=== PATIENT | male | born 1975 | race Caucasian/White ===

== ENCOUNTER 2018-05-18 11:51 | Inpatient (IN) ==
[2018-05-18] MEDS ORDERED: Sodium Chloride 0.9% 1,000 ML PRIMARY IV ONE ×2 (12:05→13:20)
[2018-05-18 12:12] LABS: BASOPHILS # (AUTO) 0.01 10*3/UL; BASOPHILS % (AUTO) 0.1 % (0-1); EOSINOPHILS # (AUTO) 0 10*3/UL; EOSINOPHILS % (AUTO) 0 % (0-8); Hematocrit [HCT] 51.5 % (42.0-52.0); Hemoglobin [HGB] 17.1 g/dL (14.0-18.0); LYMPHOCYTES # (AUTO) 1.53 10*3/uL; MEAN CORPUSCULAR HEMOGLOBIN 30.4 PG (27-31); MEAN CORPUSCULAR HGB CONC 33.2 g/dL (33-37); MEAN CORPUSCULAR VOLUME 91.5 FL (80-90); MEAN PLATELET VOLUME 10.2 FL (7.4-12.2); MONOCYTES # (AUTO) 0.61 10*3/UL (0.3-0.8); MONOCYTES % (AUTO) 6.1 % (5-15); NEUTROPHILS # (AUTO) 7.89 10*3/UL; NEUTROPHILS % (AUTO) 78.4 % (50-80); RED BLOOD COUNT 5.63 10^6/uL (4.70-6.10)
[2018-05-18 12:17] LABS: PLATELET MORPHOLOGY COMMENT NORMAL MORPHOLOGY (NORM); RBC MORPHOLOGY COMMENT NORMAL MORPHOLOGY (NORM); WBC MORPHOLOGY COMMENT NORMAL MORPHOLOGY (NORM)
[2018-05-18 12:29] LABS: BLOOD UREA NITROGEN 14 mg/dL (7-22); BUN/CREATININE RATIO 10.76 (6-20); SERUM ALBUMIN 5.2 g/dL (3.5-4.8)
--- NOTE | 2018-05-18 13:07 | DI ---
CT HEAD SCAN WITHOUT IV CONTRAST, 05/18/2018 12:05 PM : Clinical History: Injury. The patient fell. Headache. Previous Exam: None at this facility. Scans are obtained from the foramen magnum to the vertex without IV contrast. The 4th, 3rd, and lateral ventricles are of normal size, shape, position, and contour for the patient 's age. There are no abnormal areas of increased or decreased density. Specifically, there is no evid ence of an acute intracranial hemorrhagic focus. There are no extracerebral mantles or shift of the m idline structures. Bone window evaluation is normal. The paranasal sinuses are normal. READING: Normal non contrast CT head scan. There is no evidence of an acute intracranial hemorrhagic focus.
[2018-05-18 13:16] LABS: VENOUS PH 7.3 (7.32-7.42)
--- NOTE | 2018-05-18 13:16 | DI ---
CT CERVICAL SPINE WITHOUT CONTRAST, 05/18/2018 12:07 PM : Clinical History: Fall with injury to the head and neck. Previous Exam: None at this facility. Scans are performed from the T2-3 disc space to the base of the skull without contrast. Sagittal and coronal reformatted images are generated. The vertebral bodies are of normal height and size. Severe disc space narrowing is present at C6-7 wi th anterior and posterior bony proliferative change. Mild arthritic changes are present in all of the uncovertebral joints but most pronounced at C6-7. Arthritic changes are present in the zygapophyseal joint between C7 and T1 bilaterally. No fractures are identified. Posterior alignment and lateral ma sses are normal. C1 articulates normally with C2 and the occiput. Prevertebral soft tissue planes are normal. The disc spaces from C2-3 through C5-6 are normal. The lower disc spaces are obscured by artifacts. READIN. There is no acute fracture or dislocation. 2. 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 Arthritic changes are also noted in the zygapophyseal joints between C7 and T1.
--- NOTE | 2018-05-18 13:18 | DI ---
[facility] CHEST X-RAY, 05/18/2018 12:05 PM : Clinical History: Injury. The patient fell. Previous Exam: None at this facility. There is no acute soft tissue or bony abnormality. Heart size is normal. Lungs are clear. Mediastinal structures are normal. There are no pulmonary nodules. Reading: Normal chest x-ray. There is no pneumothorax or evidence of a rib fracture.
--- NOTE | 2018-05-18 13:19 | EKG ---
Measurements Intervals [place] Rate: 82 P: 41 MI: 203 QRS: 36 QRSD: 102 T: 27 QT: 374 QTc: 413 Interpretive Statements SINUS RHYTHM No previous ECG available for comparison Electronically Signed On 05-18-18 16:19:04 MDT by Chava Ludwig [email or web address]
--- NOTE | 2018-05-18 13:26 | PDOC ---
General Adult HPI - General Chief Complaint: General Medical Stated Complaint: LIGHTHEADEDNESS Date Seen by Provider: 05/18/18 Time Seen by Provider: 11:55 Source: POSITIVE: Patient, EMS Exam Limitations: POSITIVE: No limitations Nurse's Notes Reviewed & Considered: Yes EMS Report Reviewed & Considered: Verbal - History of Present Illness Initial Comment: The patient is a 43-year-old male who is brought to the emergency department by ambulance with complaints of lightheadedness. 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 He was taken down and hit the back of his head fairly hard. He did not have any loss of consciousness and was able to continue for several more drills. He subsequently developed lightheadedness and worsening headache. Subsequently EMS was called. He states that he has not felt well in general for the past couple of days. He reports general malaise and nausea without any vomiting. He denies any complaints of chest pain, shortness of breath, fever, cough, abdominal pain, numbness or weakness in his arms or legs. He states that he did injure his neck earlier this week during a takedown drill. He states that the muscles on the sides of his neck were stiff and sore however they feel better now. He is generally healthy and denies taking any medications. When EMS arrived on scene the patient was mildly hypoxic with O2 sats in the upper 80s on room air. His blood pressure was also in the 90s over 60s. An IV was established and normal saline bolus initiated. His blood sugar was checked in route and was 140. An EKG was done in route which shows normal sinus rhythm with no acute ST segment or T-wave changes. Have you received a tetanus shot in the past 10 years?: Yes - Patient Home Medications Home Medications: Home Medications NK 04/17/18 - Patient Allergies Allergies/Adverse Reactions: Allergies 3 Allergy/AdvReac Type Severity Reaction Status Date / Time hay fever Allergy Mild NOT Uncoded 05/18/18 11:50 APPLICABLE Past Medical History - heen HEENT History: Denies History Cardiovascular History: Denies History Respiratory History: Denies History Gastrointestinal History: Denies History Genitourinary History: Denies History Endocrine History: Denies History Musculoskeletal History: Other (please comment) Prosthesis or Implant: No Additional Musculoskeletal History: C4 HERNIATION Neurological History: Denies History Blood Disorders: Denies History Psychiatric History: Denies History History of Sexually Transmitted Diseases: No Male Reproductive History: Denies History Cancer History: Denies History In Past Year Been Physically Harmed or Verbally Threatened: No (PER PATIENT) History of MDRO: No History of Other Communicable Diseases: No Tobacco Use: Never Smoker In the Past 12 Months, Have Used or Abuse Any Substance: None Previous Surgical History: Yes Type / Date of Surgery: ABDOMINAL HERNIA REPAIR, BILATERAL INGUINAL HERNIA REPAIR Anesthesia Reactions: No Malignant Hyperthermia: No Family History of Malignant Hyperthermia: No Significant Family History: No pertinent family hx Past Medical History Reviewed: Reviewed - No Changes ROS - Limitations ROS Limitations: No Limitations Constitution: DENIES: Chills, Fever Cardiovascular: REPORTS: Edema (He states he did have some leg swelling in both of his legs last week). DENIES: Chest Pain, Heart Palpitations Respiratory: REPORTS: Denies Resp Symptoms. DENIES: Cough Non Productive, Cough Productive, Hurts To Breathe, Shortness Of Breath Neurological: REPORTS: Headache, Dizziness. DENIES: Confusion, Numbness, Fainting, Weakness Gastrointestinal: REPORTS: Nausea. DENIES: Abdominal Pain, Vomitting, Diarrhea , Black Stools, Bloody Stools Genitourinary: REPORTS: Denies Symptoms. DENIES: Difficulty Urinating Eyes: REPORTS: Denies Symptoms ENT: REPORTS: Denies Symptoms Skin: DENIES: Rash General Adult Exam - General Appearance General Appearance: POSITIVE: Alert, Cooperative, No Acute Distress - HEENT HEENT: POSITIVE: Head Inspection Nml, Eyes Inspection Nml, Ears Inspection Nml, Nose Inspection Nml, Pharynx Inspect. Nml, PERRL, EOMI, Dry Mucous Membranes - Neck Neck: POSITIVE: Normal Inspection, Other (He does not have any midline C-spine tenderness, denies any muscle tenderness). 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 CT scan of the cervical spine reveal some degenerative changes in the lower cervical spine with no evidence of acute fracture per radiologist. Chest x-ray is normal per radiologist. Lab Results Reviewed by Me: Yes Lab Results:: Laboratory Results 3 05/18/18 05/18/18 05/18/18 11:50 11:50 11:50 WBC 10.06 RBC 5.63 Hgb 17.1 Hct 51.5 MCV 91.5 H MCH 30.4 MCHC 33.2 RDW Std Deviation 43.9 RDW Coeff of Claudia 13.1 Plt Count 380 H MPV 10.2 Immature Gran % (Auto) 0.2 Neut % (Auto) 78.4 Lymph % (Auto) 15.2 Moffat % (Auto) 6.1 Eos % (Auto) 0 Baso % (Auto) 0.1 Immature Gran # (Auto) 0.02 Neut # (Auto) 7.89 Lymph # (Auto) 1.53 Moffat # (Auto) 0.61 Eos # (Auto) 0 Baso # (Auto) 0.01 WBC Morphology Comment Normal morphology Plt Morphology Comment Normal morphology RBC Morph Comment Normal morphology D-Dimer 0.20 VBG pH VBG pCO2 VBG HCO3 VBG Base Excess Sodium 143 Potassium 4.1 Chloride 103 Carbon Dioxide 17 L Anion Gap 23 H BUN 14 Creatinine 1.3 Estimated GFR > 60 BUN/Creatinine Ratio 10.76 Glucose 160 H Calculated Osmolality 299.0 H Lactic Acid Calcium 9.7 Magnesium 2.9 H Total Bilirubin 0.9 AST 38 ALT 56 Alkaline Phosphatase 84 Total Creatine Kinase Troponin I C-Reactive Protein < 0.5 NT-Pro-B Natriuret Pep 31.3 Total Protein 8.1 H Albumin 5.2 H Globulin 2.9 Albumin/Globulin Ratio 1.70 3 05/18/18 05/18/18 05/18/18 11:50 11:50 11:50 WBC RBC Hgb Hct MCV MCH MCHC RDW Std Deviation RDW Coeff of Claudia Plt Count MPV Immature Gran % (Auto) Neut % (Auto) Lymph % (Auto) Moffat % (Auto) Eos % (Auto) Baso % (Auto) Immature Gran # (Auto) Neut # (Auto) Lymph # (Auto) Moffat # (Auto) Eos # (Auto) Baso # (Auto) WBC Morphology Comment Plt Morphology Comment RBC Morph Comment D-Dimer VBG pH VBG pCO2 VBG HCO3 VBG Base Excess Sodium Potassium Chloride Carbon Dioxide Anion Gap BUN Creatinine Estimated GFR BUN/Creatinine Ratio Glucose Calculated Osmolality Lactic Acid 10.6 H Calcium Magnesium Total Bilirubin AST ALT Alkaline Phosphatase Total Creatine Kinase 150 Troponin I < 0.012 C-Reactive Protein NT-Pro-B Natriuret Pep Total Protein Albumin Globulin Albumin/Globulin Ratio 3 05/18/18 12:14 WBC RBC Hgb Hct MCV MCH MCHC RDW Std Deviation RDW Coeff of Claudia Plt Count MPV Immature Gran % (Auto) Neut % (Auto) Lymph % (Auto) Moffat % (Auto) Eos % (Auto) Baso % (Auto) Immature Gran # (Auto) Neut # (Auto) Lymph # (Auto) Moffat # (Auto) Eos # (Auto) Baso # (Auto) WBC Morphology Comment Plt Morphology Comment RBC Morph Comment D-Dimer VBG pH 7.30 L VBG pCO2 34 L VBG HCO3 17 L VBG Base Excess -10 L Sodium Potassium Chloride Carbon Dioxide Anion Gap BUN Creatinine Estimated GFR BUN/Creatinine Ratio Glucose Calculated Osmolality Lactic Acid Calcium Magnesium Total Bilirubin AST ALT Alkaline Phosphatase Total Creatine Kinase Troponin I C-Reactive Protein NT-Pro-B Natriuret Pep Total Protein Albumin Globulin Albumin/Globulin Ratio CBC and BMP: 05/18/18 11:50 05/18/18 11:50 EKG Interpreted/Reviewed By Me:: Yes EKG Interpretation:: POSITIVE: Normal Sinus Rhythm, Normal Rate, Normal QRS, Normal ST/T - Patient's Progress MDM / ED Course: On arrival the patient is awake and alert. His oxygen saturations are in the low 90s on 3 L per nasal cannula. His blood pressure remains 92/66. He did receive a 1 L bolus of normal saline and blood pressures improved into the 100 systolic. Because of the low blood pressure and dizziness/general malaise, blood cultures and lactate were drawn with initial IV start. In addition venous blood gas was done which shows a metabolic acidosis with a pH of 7.30 in a PCO2 of 32. His lactate was elevated at 10.2. Blood sugar is 160. His white count and CRP are normal. EKG done here also shows normal sinus rhythm with no acute ST segment or T-wave changes. Troponin, d-dimer, BNP are all normal. After administration of fluids the patient was feeling better overall. Because of his fall and headache a CT scan of the head was done which was normal. CT scan of the cervical spine reveals degenerative changes with no fracture. Chest x-ray also shows normal heart size and normal lung thompson. The patient does have lactic acidosis which is thought to possibly be related to hypovolemia however the exact etiology remains unclear. Clinically he does not have any evidence of infection and sepsis seems unlikely. I did discuss the patient with Dr. Watts and he has agreed to admit the patient for further treatment and monitoring. These findings and recommendations were discussed with the patient and he is in agreement with this plan. Patient Care Time - Estimated PCT Patient Care Time (In Minutes): 40 Vital Signs - Recent Vital Signs Vital Signs: Vital Signs (Last 8 hours) Temp Pulse Pulse Pulse Pulse Pulse Pulse 05/18/18 14:35 98.5 F 84 05/18/18 12:55 84 80 82 05/18/18 12:07 82 05/18/18 11:49 97.3 F 87 87 Resp BP BP BP BP Pulse Ox 05/18/18 14:35 20 118/61 93 05/18/18 12:55 105/66 110/69 103/72 05/18/18 12:07 05/18/18 11:49 17 92/66 91 - VS Reviewed Vital Signs Reviewed: Yes Discharge Clinical Impression: Metabolic acidosis, Lactic acidosis, Scalp contusion, Hypoxia Discharge Disposition: Admit to Inpatient Condition: Fair Date Decision to Admit to Inpatient: 05/18/18 Time Decision to Admit to Inpatient: 12:45
[2018-05-18] MEDS ORDERED: ACETAMINOPHEN 325 MG TABLET PO PRN (14:59)
[2018-05-18] MEDS ORDERED: LIDOCAINE W/ SODIUM BICARB 0.5 ML SYR SUBD PRN (14:59)
[2018-05-18] MEDS ORDERED: CALCIUM CARBONATE 500 MG (TUMS) CHEWABLE TABLET PO PRN (14:59)
[2018-05-18] MEDS ORDERED: DOCUSATE 100 MG CAPSULE PO PRN (14:59)
[2018-05-18] MEDS ORDERED: ONDANSETRON 4 MG/2 ML VIAL IVP PRN (14:59)
--- NOTE | 2018-05-18 15:12 | PDOC ---
HPI - History of Present Illness Date of Service: 05/18/18 Time of Service: 15:20 Chief Complaint: Lightheadedness History of Present Illness: This is a 43 years old male with no significant past medical history who was brought to the hospital because of lightheadedness. 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 He was taking down and hit the back of his head hard. There was no loss of consciousness. After that he did develop some lightheadedness and some headaches. EMS were called and they brought him here he did report that some upset stomach some nausea but no vomiting no diarrhea. When he came in he was mildly hypoxic with the O2 and the upper 80s on room air. Blood pressure was borderline 90s over 60s. an IV fluid was given. The labs showed increased anion gap metabolic secondary lactic acidosis. His lactic acid was 10. After getting IV fluids he was admitted. Currently he is feeling fine he denying symptoms. There is no muscle pain or aches. He is not taking any medication no supplements. Past Medical History Medical History: No significant past medical history Surgical History: History of A hernia repair Family History: Reviewed an Not Pertinent Past Social History: does not smoke or drink lives in [place]. Tobacco Use: Never Smoker In the Past 12 Months, Have Used or Abuse Any of the Following Substance: None Alcohol Use: Sober Medication / Allergies Home Medications: Home Medications 3 Medication Instructions Recorded Confirmed Type NK 04/17/18 05/18/18 History Allergies/Adverse Reactions: Allergies 3 Allergy/AdvReac Type Severity Reaction Status Date / Time hay fever Allergy Mild NOT Uncoded 05/18/18 11:50 APPLICABLE Review of Systems - Review of Systems All Systems: Reviewed & No Additional Complaints Except as Stated Exam - Vitals Vital Signs: Vital Signs Temperature 98.5 F Temperature Source Temporal Artery Scan Pulse Rate [Pulse Oximeter] 84 Pulse Rate [Telemetry] 87 Pulse Rate [Standing] 82 Pulse Rate [Sitting] 80 Pulse Rate [Lying] 84 Pulse Rate 82 Respiratory Rate 20 Blood Pressure [Standing] 103/72 Blood Pressure [Sitting] 110/69 Blood Pressure [Lying] 105/66 Blood Pressure [Left Arm] 118/61 Pulse Ox 93 Oxygen Flow Rate 3 Oxygen Delivery Method Room Air Height 5 ft 10 in Weight 194 lb - General General Appearance: No Acute Distress, Cooperative - Head Head Exam: Normal Inspection - Eye Eye Exam: POSITIVE: Normal Appearance - ENT ENT Exam: POSITIVE: Normal Exam - Neck Neck Exam: Normal Inspection - Respiratory Respiratory Exam: POSITIVE: Clear to Auscultation - Bilaterally - Cardiovascular Cardiovascular Exam: POSITIVE: RRR - GI/Abdominal GI/Abdominal Exam: POSITIVE: Normal Bowel Sounds, Non Tender, Non Distended, Soft, No Organomegaly - Rectal Rectal Exam: POSITIVE: Deferred - External Exam: POSITIVE: Deferred Exam: POSITIVE: Deferred - Extremities Extremities Exam: POSITIVE: Normal Inspection - Back Back Exam: POSITIVE: Normal Inspection - Neurological Neurological Exam: POSITIVE: Alert, Oriented x 3, CN II-XII Intact, No Facial Droop, Speech Intact / Clear, Moves All Extremities Equally - Psychiatric Psychiatric Exam: POSITIVE: Normal Affect Results - Labs CBC and BMP: 05/18/18 11:50 05/18/18 11:50 - EKG Data -: EKG Interpreted by Me Rate: Normal EKG Shows Normal: Sinus Rhythm - EKG Data When Compared to Previous EKG(s) There Are: Other (Normal EKG) - Imaging Status: Report Reviewed by Me ( CT head Normal non contrast CT head scan. There is no evidence of an acute intracranial hemorrhagic focus. CT neck 1. There is no acute fracture or dislocation. 2. Severe arthritic disc space narrowing is present at C6-7 with arthritis involving the zygapophyseal joints at this level. Arthritic changes are also noted in the zygapophyseal joints between C7 and T1. Normal chest x-ray. There is no pneumothorax or evidence of a rib fracture.) Assessment and Plan - Patient Problems (1) Metabolic acidosis Current Visit: Yes Status: Acute Comment: Increased her gabapentin to acidosis secondary lactic acidosis. I think this is secondary to intense physical exertion. We'll continue with IV fluids and repeat his labs. The culture was taking breath think we'll hold off on giving antibiotics. Code(s): E87.2 - Acidosis
[2018-05-18] MEDS: Lactated Ringers 1,000 ML PRIMARY IV SCH ×2 (16:07→23:56)
[2018-05-19 04:33] LABS: BLOOD UREA NITROGEN 16 mg/dL (7-22)
[2018-05-19 07:24] VITALS: RESP 16
[2018-05-19 07:40] VITALS: BP 118/78; TEMP 97.6; O2SAT 92
--- NOTE | 2018-05-19 09:32 | DCSUMMARY ---
Hospitalization Summary Hospital Course: Final Discharge Diagnosis: Current Visit Problems Problem Status Onset Code Metabolic acidosis Acute E87.2 Lactic acidosis Acute E87.2 Scalp contusion Acute S00.03XA Hypoxia Acute R09.02 Diagnostic Data, Laboratory Data, and Procedures of Signifigance: History and Physical pertinent to Admission: Past Medical History Medical History: No significant past medical history Surgical History: History of A hernia repair Family History: Reviewed an Not Pertinent Past Social History: does not smoke or drink lives in [place]. Tobacco Use: Never Smoker In the Past 12 Months, Have Used or Abuse Any of the Following Substance: None Alcohol Use: Sober CBC and BMP 05/18/18 11:50 05/19/18 04:12 Laboratory Results 05/18/18 05/18/18 05/18/18 Range/Units 11:50 11:50 11:50 WBC 10.06 (4.8-10.8) 10^3/uL RBC 5.63 (4.70-6.10) 10^6/uL Hgb 17.1 (14.0-18.0) g/dL Hct 51.5 (42.0-52.0) % MCV 91.5 H (80-90) FL MCH 30.4 (27-31) PG MCHC 33.2 (33-37) g/dL RDW Std Deviation 43.9 (39-50) fL RDW Coeff of Claudia 13.1 (11.5-14.5) % Plt Count 380 H (140-350) 10*3/uL MPV 10.2 (7.4-12.2) FL Immature Gran % (Auto) 0.2 (0-5) % Neut % (Auto) 78.4 (50-80) % Lymph % (Auto) 15.2 (10-50) % [place] % (Auto) 6.1 (5-15) % Eos % (Auto) 0 (0-8) % Baso % (Auto) 0.1 (0-1) % Immature Gran # (Auto) 0.02 10*3/UL Neut # (Auto) 7.89 10*3/UL Lymph # (Auto) 1.53 10*3/uL [place] # (Auto) 0.61 (0.3-0.8) 10*3/UL Eos # (Auto) 0 10*3/UL Baso # (Auto) 0.01 10*3/UL WBC Morphology Comment Normal morphology (NORM) Plt Morphology Comment Normal morphology (NORM) RBC Morph Comment Normal morphology (NORM) D-Dimer 0.20 (0.00-0.59) mg/L VBG pH (7.32-7.42) VBG pCO2 (45-55) mmHg VBG HCO3 (22-26) mmol/L VBG Base Excess (-2-2) MMOL/L Sodium 143 (135-145) meq/L Potassium 4.1 (3.8-5.2) meq/L Chloride 103 (98-112) meq/L Carbon Dioxide 17 L (23-33) meq/L Anion Gap 23 H (5-20) BUN 14 (7-22) mg/dL Creatinine 1.3 (0.70-1.50) mg/dL Estimated GFR > 60 (>60 ml/min/1.73m(2)) BUN/Creatinine Ratio 10.76 (6-20) Glucose 160 H (78-110) mg/dL Calculated Osmolality 299.0 H (267-292) mOsm/kg Lactic Acid (0.70-2.10) MMOL/L Calcium 9.7 (8.7-10.7) mg/dL Magnesium 2.9 H (1.6-2.4) mg/dL Total Bilirubin 0.9 (0.3-1.2) mg/dL AST 38 (21-57) IU/L ALT 56 (21-72) IU/L Alkaline Phosphatase 84 (38-126) IU/L Total Creatine Kinase (55-170) IU/L Troponin I (< 0.040) ng/mL C-Reactive Protein < 0.5 (0.0-0.9) mg/dL NT-Pro-B Natriuret Pep 31.3 (0-125) PG/ML Total Protein 8.1 H (6.1-8.0) g/dL Albumin 5.2 H (3.5-4.8) g/dL Globulin 2.9 (2.50-4.10) g/dL Albumin/Globulin Ratio 1.70 (1.3-2.0) mg/g 05/18/18 05/18/18 05/18/18 Range/Units 11:50 11:50 11:50 WBC (4.8-10.8) 10^3/uL RBC (4.70-6.10) 10^6/uL Hgb (14.0-18.0) g/dL Hct (42.0-52.0) % MCV (80-90) FL MCH (27-31) PG MCHC (33-37) g/dL RDW Std Deviation (39-50) fL RDW Coeff of Claudia (11.5-14.5) % Plt Count (140-350) 10*3/uL MPV (7.4-12.2) FL Immature Gran % (Auto) (0-5) % Neut % (Auto) (50-80) % Lymph % (Auto) (10-50) % [place] % (Auto) (5-15) % Eos % (Auto) (0-8) % Baso % (Auto) (0-1) % Immature Gran # (Auto) 10*3/UL Neut # (Auto) 10*3/UL Lymph # (Auto) 10*3/uL [place] # (Auto) (0.3-0.8) 10*3/UL Eos # (Auto) 10*3/UL Baso # (Auto) 10*3/UL WBC Morphology Comment (NORM) Plt Morphology Comment (NORM) RBC Morph Comment (NORM) D-Dimer (0.00-0.59) mg/L VBG pH (7.32-7.42) VBG pCO2 (45-55) mmHg VBG HCO3 (22-26) mmol/L VBG Base Excess (-2-2) MMOL/L Sodium (135-145) meq/L Potassium (3.8-5.2) meq/L Chloride (98-112) meq/L Carbon Dioxide (23-33) meq/L Anion Gap (5-20) BUN (7-22) mg/dL Creatinine (0.70-1.50) mg/dL Estimated GFR (>60 ml/min/1.73m(2)) BUN/Creatinine Ratio (6-20) Glucose (78-110) mg/dL Calculated Osmolality (267-292) mOsm/kg Lactic Acid 10.6 H (0.70-2.10) MMOL/L Calcium (8.7-10.7) mg/dL Magnesium (1.6-2.4) mg/dL Total Bilirubin (0.3-1.2) mg/dL AST (21-57) IU/L ALT (21-72) IU/L Alkaline Phosphatase (38-126) IU/L Total Creatine Kinase 150 (55-170) IU/L Troponin I < 0.012 (< 0.040) ng/mL C-Reactive Protein (0.0-0.9) mg/dL NT-Pro-B Natriuret Pep (0-125) PG/ML Total Protein (6.1-8.0) g/dL Albumin (3.5-4.8) g/dL Globulin (2.50-4.10) g/dL Albumin/Globulin Ratio (1.3-2.0) mg/g 05/18/18 05/18/18 05/19/18 Range/Units 12:14 19:10 04:12 WBC (4.8-10.8) 10^3/uL RBC (4.70-6.10) 10^6/uL Hgb (14.0-18.0) g/dL Hct (42.0-52.0) % MCV (80-90) FL MCH (27-31) PG MCHC (33-37) g/dL RDW Std Deviation (39-50) fL RDW Coeff of Claudia (11.5-14.5) % Plt Count (140-350) 10*3/uL MPV (7.4-12.2) FL Immature Gran % (Auto) (0-5) % Neut % (Auto) (50-80) % Lymph % (Auto) (10-50) % [place] % (Auto) (5-15) % Eos % (Auto) (0-8) % Baso % (Auto) (0-1) % Immature Gran # (Auto) 10*3/UL Neut # (Auto) 10*3/UL Lymph # (Auto) 10*3/uL [place] # (Auto) (0.3-0.8) 10*3/UL Eos # (Auto) 10*3/UL Baso # (Auto) 10*3/UL WBC Morphology Comment (NORM) Plt Morphology Comment (NORM) RBC Morph Comment (NORM) D-Dimer (0.00-0.59) mg/L VBG pH 7.30 L (7.32-7.42) VBG pCO2 34 L (45-55) mmHg VBG HCO3 17 L (22-26) mmol/L VBG Base Excess -10 L (-2-2) MMOL/L Sodium 144 (135-145) meq/L Potassium 4.2 (3.8-5.2) meq/L Chloride 108 (98-112) meq/L Carbon Dioxide 27 (23-33) meq/L Anion Gap 9 (5-20) BUN 16 (7-22) mg/dL Creatinine 1.0 (0.70-1.50) mg/dL Estimated GFR > 60 (>60 ml/min/1.73m(2)) BUN/Creatinine Ratio 16.00 (6-20) Glucose 100 (78-110) mg/dL Calculated Osmolality 298.0 H (267-292) mOsm/kg Lactic Acid 1.2 (0.70-2.10) MMOL/L Calcium 8.7 (8.7-10.7) mg/dL Magnesium (1.6-2.4) mg/dL Total Bilirubin (0.3-1.2) mg/dL AST (21-57) IU/L ALT (21-72) IU/L Alkaline Phosphatase (38-126) IU/L Total Creatine Kinase (55-170) IU/L Troponin I (< 0.040) ng/mL C-Reactive Protein (0.0-0.9) mg/dL NT-Pro-B Natriuret Pep (0-125) PG/ML Total Protein (6.1-8.0) g/dL Albumin (3.5-4.8) g/dL Globulin (2.50-4.10) g/dL Albumin/Globulin Ratio (1.3-2.0) mg/g 05/19/18 Range/Units 04:12 WBC (4.8-10.8) 10^3/uL RBC (4.70-6.10) 10^6/uL Hgb (14.0-18.0) g/dL Hct (42.0-52.0) % MCV (80-90) FL MCH (27-31) PG MCHC (33-37) g/dL RDW Std Deviation (39-50) fL RDW Coeff of Claudia (11.5-14.5) % Plt Count (140-350) 10*3/uL MPV (7.4-12.2) FL Immature Gran % (Auto) (0-5) % Neut % (Auto) (50-80) % Lymph % (Auto) (10-50) % [place] % (Auto) (5-15) % Eos % (Auto) (0-8) % Baso % (Auto) (0-1) % Immature Gran # (Auto) 10*3/UL Neut # (Auto) 10*3/UL Lymph # (Auto) 10*3/uL [place] # (Auto) (0.3-0.8) 10*3/UL Eos # (Auto) 10*3/UL Baso # (Auto) 10*3/UL WBC Morphology Comment (NORM) Plt Morphology Comment (NORM) RBC Morph Comment (NORM) D-Dimer (0.00-0.59) mg/L VBG pH (7.32-7.42) VBG pCO2 (45-55) mmHg VBG HCO3 (22-26) mmol/L VBG Base Excess (-2-2) MMOL/L Sodium (135-145) meq/L Potassium (3.8-5.2) meq/L Chloride (98-112) meq/L Carbon Dioxide (23-33) meq/L Anion Gap (5-20) BUN (7-22) mg/dL Creatinine (0.70-1.50) mg/dL Estimated GFR (>60 ml/min/1.73m(2)) BUN/Creatinine Ratio (6-20) Glucose (78-110) mg/dL Calculated Osmolality (267-292) mOsm/kg Lactic Acid 0.8 (0.70-2.10) MMOL/L Calcium (8.7-10.7) mg/dL Magnesium (1.6-2.4) mg/dL Total Bilirubin (0.3-1.2) mg/dL AST (21-57) IU/L ALT (21-72) IU/L Alkaline Phosphatase (38-126) IU/L Total Creatine Kinase (55-170) IU/L Troponin I (< 0.040) ng/mL C-Reactive Protein (0.0-0.9) mg/dL NT-Pro-B Natriuret Pep (0-125) PG/ML Total Protein (6.1-8.0) g/dL Albumin (3.5-4.8) g/dL Globulin (2.50-4.10) g/dL Albumin/Globulin Ratio (1.3-2.0) mg/g Course of Hospitalization: This very nice 43-year-old gentleman who is at the [facility]. He was brought to the hospital because of lightheadedness after intense physical activity on hand to hand combat he was mildly hypoxic in the upper 80s and the elevated lactate level negative CKs patient was rehydrated aggressively his lactate level normalized he is feeling himself this morning and is a in good spirits and back to his baseline and is ready to be discharged . Patient was seen with nurse Mami and Hazel On the date of discharge, the patient was examined: Gen.: No acute distress, alert, nontoxic Heart: Regular rate and rhythm, no murmurs, clicks, gallops, or rubs Lungs: Clear to auscultation bilaterally, breathing is nonlabored Abdomen/GI: Normal tones on auscultation, soft, nontender, nondistended Musculoskeletal/extremities: No clubbing, cyanosis, or edema Vitals reviewed and are listed below Vital Signs (24 hrs) Temp Pulse Pulse Pulse Pulse Pulse Pulse 05/19/18 07:39 97.6 F 67 05/19/18 07:00 64 77 05/19/18 04:12 97.7 F 76 05/19/18 03:00 72 05/19/18 01:00 97.6 F 70 05/18/18 23:00 81 05/18/18 21:00 98.0 F 70 05/18/18 19:00 79 05/18/18 17:00 98 F 82 05/18/18 14:46 98.5 F 84 87 05/18/18 14:35 98.5 F 84 05/18/18 12:55 84 80 82 05/18/18 12:07 82 05/18/18 11:49 97.3 F 87 87 Resp BP BP BP BP Pulse Ox 05/19/18 07:39 16 118/78 92 05/19/18 07:00 16 05/19/18 04:12 18 105/61 91 05/19/18 03:00 05/19/18 01:00 18 114/59 92 05/18/18 23:00 05/18/18 21:00 18 123/66 94 05/18/18 19:00 18 05/18/18 17:00 20 115/62 94 05/18/18 14:46 16 118/61 93 05/18/18 14:35 20 118/61 93 05/18/18 12:55 105/66 110/69 103/72 05/18/18 12:07 05/18/18 11:49 17 92/66 91 Assessment and Plan: 1. As per discharge assessments above 2. Disposition: [facility] 3. Condition on discharge, stable and improved. 4. Diet: regular diet 5. Activities: resume normal activities 6. Follow-Up: 1. PCP 2. 7. Medications at the Time of Discharge: Home Medications 3 Medication Instructions Recorded Confirmed Type NK 04/17/18 05/18/18 History 8. Time, care, counseling and coordination of care for this discharge is greater than 30 minutes. Exam - Vitals Vital Signs: Vital Signs Temperature 97.6 F Temperature Source Temporal Artery Scan Pulse Rate [Pulse Oximeter] 67 Pulse Rate [Telemetry] 87 Pulse Rate [Standing] 82 Pulse Rate [Sitting] 80 Pulse Rate [Lying] 84 Pulse Rate 64 Respiratory Rate 16 Blood Pressure [Standing] 103/72 Blood Pressure [Sitting] 110/69 Blood Pressure [Lying] 105/66 Blood Pressure [Left Arm] 118/78 Pulse Ox 92 Oxygen Flow Rate 1 Oxygen Delivery Method Room Air Height 5 ft 10 in Weight 195 lb 9.6 oz
== END 2018-05-19 09:43 | disposition home or self-care (01) | DRG 641 ==
LOC: ER 11:51 → MED/SURG 13:42
PROVIDERS: ADMIT Personal Emergency Response Attendant; ATTEND Internal Medicine